=== PATIENT | male | born 1975 | race Caucasian/White ===

== ENCOUNTER 2022-08-03 08:36 | Outpatient (CLI) | payer OTHER, SELFPAY ==
[2022-08-03 11:18] LABS: Albumin* 4.4 g/dL (3.3-5.0); Chloride* 106 mmol/L (96-114); Potassium* 4.9 mmol/L (3.6-5.1); Sodium* 140 mmol/L (135-149)
[2022-08-03 11:20] LABS: Cholesterol* 238 mg/dL (90-199)
[2022-08-03 11:21] LABS: Alanine Aminotransferase* 28 U/L (4-50); Alkaline Phosphatase* 61 U/L (40-150); Aspartate Amino Transferase* 25 U/L (12-35); Bilirubin Total* 0.7 mg/dL (0.1-1.5); Blood Urea Nitrogen* 12 mg/dL (5-24); Calcium* 9.2 mg/dL (8.4-10.6); Carbon Dioxide* 27 mmol/L (20-32); Creatinine* 0.9 mg/dL (0.5-1.5); Estimated Glomerular Filt Rate 108 ml/min; Glucose* 107 mg/dL (60-115); HDL Cholesterol* 52 mg/dL (>=40); LDL Cholesterol Calculated 139 mg/dL (<100); Total Protein* 7.1 g/dL (6.0-8.3); Triglycerides* 235 mg/dL (40-149)
== END 2022-08-03 08:37 | disposition home or self-care (01) ==
LOC: NFLDREF 08:37
PROVIDERS: PCP Family Medicine; Visit Provider Family Medicine
DX: Z00.00 Encounter for general adult medical examination without abnormal findings (principal); E78.5 Hyperlipidemia, unspecified; I10 Essential (primary) hypertension; E66.01 Morbid (severe) obesity due to excess calories
CPT/HCPCS: 80053; 80061

== ENCOUNTER 2023-07-17 09:26 | Outpatient (CLI) | payer OTHER, SELFPAY | END 2023-07-17 09:27 | disposition home or self-care (01) | LOC: NFLDREF 07-18 06:38 | PROVIDERS: PCP Family Medicine; Referring Provider Family Medicine; Visit Provider Family Medicine | DX: E78.5 Hyperlipidemia, unspecified (principal) | CPT/HCPCS: 80053; 80061 ==

== ENCOUNTER 2023-08-20 14:42 | Outpatient (CLI) | payer OTHER, SELFPAY ==
--- NOTE | 2023-08-20 15:26 | W.PM.STED ---
Stress Test Note Date Date Seen: 08/20/23 Date of test: 08/20/23 Providers Primary care provider: David Fairchild Stress test physician: Valeria Nicole Stress Test Note Stress test ordered: Stress Echo Indication for test: Chest pain Stress [facility] medicine[facility] Results discussion: Resting EKG: Sinus rhythm, 80 beats per minute. Resting blood pressure: 160/84 Stress test: Patient exercised following standard Marcus protocol on the treadmill. Patient exercised for a total of 5 minute 16 seconds achieving 7.1 Mets. He exercised to maximum heart rate of 162 beats per minute which was 109% of a calculated target heart rate of 148. He had a maximum blood pressure of 214/84 giving him a rate pressure product of 24,824. There was no arrhythmia, no EKG changes definitive for ischemia. Patient did have a hypertensive response to exercise and poor exercise tolerance. Requested test be terminated as the back of his legs for becoming tired, not necessarily painful but tired as well as shortness of breath. Await echo images to couple this for a full formal diagnostic. Impression: Subjectively negative, objectively negative EKG portion of this stress test. Hypertensive response to exercise, poor exercise tolerance. Follow up suggested: Patient is aware that the echo images will need to be read by Cardiology, he will await contact from his primary provider's office once the report is in. We did discuss the hypertensive response, briefly touched on lifestyle modification with healthy eating, weight loss and increasing exercise if the echo images are not showing any ischemia. He is advised to talk to his primary provider further about these issues.
[2023-08-20] MEDS: PERFLUTREN LIPID MICROSPHERES 2 ML VIAL IV (16:20)
[2023-08-20 16:27] VITALS: BP 184/94; PULSE 104; RESP 18
== END 2023-08-20 14:43 | disposition home or self-care (01) ==
LOC: STRESS 14:42
PROVIDERS: PCP Family Medicine; Visit Provider Family Medicine
DX: R07.9 Chest pain, unspecified (principal); R06.09 Other forms of dyspnea; R94.31 Abnormal electrocardiogram [ECG] [EKG]
CPT/HCPCS: 93016; 93325; 93351; Q9957

== ENCOUNTER 2023-08-29 08:42 | Outpatient (CLI) | payer OTHER, SELFPAY ==
--- NOTE | 2023-08-29 09:17 | W.ANESCHARGE ---
Anesthesia Charges Start Date/Time Anesthesia Start Date: 08/29/23 Anesthesia Start Time: 09:58 Stop Date/Time Anesthesia Stop Date: 08/29/23 Anesthesia Stop Time: 10:26
--- NOTE | 2023-08-29 10:25 | W.ANESCHARGE ---
Anesthesia Charges Start Date/Time Anesthesia Start Date: 08/29/23 Anesthesia Start Time: 09:58 Stop Date/Time Anesthesia Stop Date: 08/29/23 Anesthesia Stop Time: 10:26
== END 2023-08-29 08:43 | disposition home or self-care (01) ==
LOC: OP CLINIC 08:42
PROVIDERS: PCP Family Medicine; Visit Provider Surgery
DX: Z12.11 Encounter for screening for malignant neoplasm of colon (principal); K57.30 Diverticulosis of large intestine without perforation or abscess without bleeding
CPT/HCPCS: 00811; 45378; J2704